=== PATIENT | female | born 1990 | race Caucasian/White ===

== ENCOUNTER 2017-07-08 05:12 | Observation (INO) | payer BC ==
[2017-07-08] VITALS (8 sets, daily range): BP systolic 105–128; BP diastolic 65–78
[~2017-07-08] VITALS: Ht 162.6 cm; Wt 92.1 kg
--- NOTE | ~2017-07-08 | S ---
[facility] [place] [address] SURGICAL PATH RPT PROCEDURE Name: RACHEL MOREL Room #: 409-P [facility] Genesis Barragan#: [id number] Admission: 07/08/17 Date of : 88 Discharge: 07/08/17 Report #: [id number] Path Case #: [id number] PATHOLOGY REPORT COLLECTION DATE: 07/08/2017 RECEIVED DATE: 07/08/2017 SUBMITTING PHYS: Dr. Derrick Richmond OTHER PHYS: SPECIMEN(S) RECEIVED: A.Gallbladder * * * * * * * * * * * * FINAL DIAGNOSIS: "Gallbladder", cholecystectomy: - Chronic cholecystitis. - Cholelithiasis. (CLW:debby; 07/11/2017) PATHOLOGIST: Whit Maya M.D. REPORT ELECTRONICALLY SIGNED BY: Whit Maya M.D. DATE/TIME: 07/11/2017 21:27 * * * * * * * * * * * * GROSS PATHOLOGY: Received in formalin labeled "Rachel Morel, gallbladder," is a 8.0 x 3.3 x 0.6 cm, previously opened gallbladder with pink-cherry and smooth serosal surfaces. Opening the gallbladder reveals pink-cherry and roughened mucosa with moderate yellow stippling and an average wall thickness of 0.2 cm. Calculi are present (soft gritty yellow-cherry calculi measuring in aggregate 0.5 x 0.5 x 0.5 cm and measuring 0.1 cm or less in greatest dimension) and no masses are noted grossly. Drapery Hemmer Automatic sections from the body and fundus are submitted along with the proximal margin in cassette A1. ([employer]; 07/10/2017) CLINICAL HISTORY: Gallbladder disease, cholelithiasis. INITIAL CPT CODE(S): A; 87199 Professional services performed by [facility] [address] , [place] [address] [facility] [address] [place] [address] SURGICAL PATH RPT PROCEDURE Name: RACHEL MOREL Kiana Room #: 409-P [facility] Genesis Sen.#: [id number] Admission: 07/08/17 Date of : 88 Discharge: 07/08/17 Report #: [id number] Path Case #: [id number] Technical services performed by [facility] at [address] [place] [address], [place] [address]. [place] [address] PHONE: [phone] DIRECTOR: Lino Thornton M.D. * * * END OF REPORT * * *
--- NOTE | ~2017-07-08 | O ---
[facility] [place] [address] OPERATIVE REPORT Name: FROYLAN MOREL [id number]: 07/08/17 Attend Phys: Derrick Richmond MD Discharge: 07/08/17 Date of : 88 Report #: [id number] THIS REPORT FOR: //name// CC: Derrick Norman MD PREOPERATIVE DIAGNOSES: Cholecystitis with cholelithiasis. POSTOPERATIVE DIAGNOSES: Cholecystitis with cholelithiasis. PROCEDURES PERFORMED: Laparoscopic cholecystectomy with cholangiogram. ANESTHESIA: General. COMPLICATIONS: None. ESTIMATED BLOOD LOSS: 5 mL. DESCRIPTION OF PROCEDURE: With the patient under general anesthesia, abdomen was prepped and draped in the sterile fashion. IV antibiotic was administered. Timeout was performed. A 0.25% Marcaine was used to anesthetize the skin infraumbilically. A 2-cm incision was made infraumbilically. Incision was carried down to the fascia which was somewhat difficult to find because of the thinning of the fascia from recent . With the abdominal wall lifted anteriorly, Veress needle was then placed through the fascia and peritoneum. Abdominal cavity was insufflated with CO2. Pneumoperitoneum was established without difficulty. After creating pneumoperitoneum pressure of 15, a 11-mm trocar was placed through the fascia. This was performed under visualization. Pneumoperitoneum was easily entered. No harm to the underlying tissue. Two 5-mm trocars were placed in the right upper quadrant. Another 5-mm trocar was placed in the epigastrium. Visualization of the abdomen did not show any abnormality. Gallbladder grasped and lifted over the liver. Lateral to the gallbladder, on the liver, there were significant adhesions that were firm, I believe, secondary to the gallbladder inflammation. The peritoneum over the cystic duct was dissected free. The cystic duct did have some surrounding fibrosis. The cystic duct was isolated. A clip was placed in junction to the cystic duct to the gallbladder. Common duct was visualized fairly well through the peritoneum. Opening was then made in the cystic duct. Cholangiogram catheter was placed. Fluoroscopic cholangiogram showed pretty small common duct. The cholangiogram catheter was in the cystic duct. No harm to the common duct. When I put the catheter into the cystic duct, it would not go in very far. There was some extravasation at the cannulation site. The radiologist called later that there was some filling defect, likely air bubbles. I reviewed these films and agree with that. The catheter was removed and the proximal cystic duct was clipped x 2 and then divided. The cystic artery was isolated, clipped x 2 proximally and 1 distally and then divided. Posterolaterally, there [address] [address] OPERATIVE REPORT Name: FROYLAN MOREL Room #: 409-P RICK BarrientosRMarcelo#: [id number] Admission: 07/08/17 Attend Phys: Derrick Richmond MD Discharge: 07/08/17 Date of : 88 Report #: [id number] was a branch of small artery. This was also clipped x 2 proximally. Gallbladder was freed from the liver bed. Gallbladder was placed in the specimen bag, retrieved through the infraumbilical port. Gallbladder was opened off the field. There were several areas a large cholesterol material. One of the cholesterol material was quite firm, the other one is really soft. They are adherent to the gallbladder. Without any free stones, I do think the common duct filling defect is stone. It looks like an air bubble. No further evaluation will be needed for that. The liver bed was checked, hemostasis excellent. Irrigation was aspirated out, trocars removed. The CO2 was evacuated as much as possible. The fascia defect on the umbilicus was able to be visualized and grasped with clamp and the fascia was closed with 0 Vicryl [id number]-[id number] x 2. Irrigation was performed. Skin was closed with 5-0 PDS. Steri-Strips and Band-Aids applied. Steri-Strips, Band-Aids were applied. The patient tolerated the procedure well. By: [id number] Derrick Richmond MD /jamila
[~2017-07-08 05:12] MED LIST: BREWER'S YEAST500 MG PO; PRENATAL PO
[2017-07-08 08:05] LABS: HEMATOCRIT 42.5 % (37.0-47.0); HEMOGLOBIN 14.6 gm/dL (12.0-15.0)
[2017-07-08] MEDS ORDERED: NORCO 5-325 TA1 EACH PO (16:11)
== END 2017-07-08 16:40 | disposition home or self-care (01) ==
LOC: TBA 05:12 → OR 05:12 → 4N 13:34 → OR 14:10 → ENTRNSPT 16:33 → 4N 16:40
PROVIDERS: Surgery
DX: K80.10 Calculus of gallbladder with chronic cholecystitis without obstruction (principal)
CPT/HCPCS: 50010; 50101; 50411; 50555; 50558; 51489; 53307; 53310; 55245; 55317; 56462; 56525; 56526; 62110; 62900; 70005